=== PATIENT | female | born 1990 | race Caucasian/White ===

== ENCOUNTER 2017-03-25 18:06 | Emergency (ER) | payer SELFPAY ==
[~2017-03-25 18:06] MED LIST: BACTRIM DS TABL1 TA1 PO; BENZONATATE PO; BIRTH CONTROL PILL PO; CIPRO; DEPO-PROVE150 MG/1 M; DIFLUCAN; FLAGYL250 M1 PO; FLEXERIL10 M1 PO; KEFLEX500 MG PO; MACROBID100 M1 DOB; NAPROSYN250 M1 PO; NO MEDICATIONS; NORCO 7.5-3251 EACH PO; PYRIDIUM100 MG PO; VALTREX500 MG; VICODIN 5/500 T1 TAB PO; VOLTAREN50 MG PO; ZITHROMAX1 G/PKT PO; ZOFRAN ODT4 MG PO
[2017-03-25 18:27] LABS: URINE SOURCE CLEAN CATCH
[2017-03-25 18:29] LABS: URINE APPEARANCE CLEAR; URINE BILIRUBIN NEG (NEG); URINE BLOOD TRACE-INTACT (NEG); URINE COLOR YELLOW; URINE GLUCOSE NEG (NORM); URINE KETONE NEG (NEG); URINE LEUKOCYTE ESTERASE NEG (NEG); URINE NITRATE NEG (NEG); URINE PH 6.5 (5-8); URINE PROTEIN NEG (NEG); URINE UROBILINOGEN 0.2 MG/DL (NORM)
[2017-03-25 18:30] LABS: MICRO INDICATED? YES
[2017-03-25 18:33] LABS: CULTURE INDICATED? YES; URINE BACTERIA 1+ (NEG); URINE MUCUS PRESENT; URINE SQUAMOUS EPITHELIAL CELL OCCAS /[HPF]; URINE TRANSITIONAL EPI CELLS FEW /[HPF]
== END 2017-03-25 19:17 | disposition home or self-care (01) ==
LOC: SED 18:06
PROVIDERS: Physician Assistant
DX: N30.01 Acute cystitis with hematuria (principal); F17.210 Nicotine dependence, cigarettes, uncomplicated; Z87.442 Personal history of urinary calculi; Z79.899 Other long term (current) drug therapy
CPT/HCPCS: 81003; 84703; 87086; 99283